=== PATIENT | female | born 1975 | race African-American/Black ===

== ENCOUNTER 2021-08-07 07:21 | Day surgery (SDC) | payer OTHER ==
[2021-08-06 12:14] VITALS: BMI 25.0
[2021-08-07 07:54] VITALS: TEMP 97.8
[2021-08-07 09:31] VITALS: PULSE 84
[2021-08-07 11:22] VITALS: BP 110/64
== END 2021-08-07 09:45 | disposition home or self-care (01) ==
LOC: FASU-ENDO 07:21
PROVIDERS: ATTEND Internal Medicine Gastroenterology
PROC: 0DJD8ZZ Inspection of Lower Intestinal Tract, Via Natural or Artificial Opening Endoscopic (ICD-10-PCS; principal; 2021-08-07 08:50)
DX: Z12.11 Encounter for screening for malignant neoplasm of colon (principal); Z83.71 Family history of colonic polyps
CPT/HCPCS: 84703